=== PATIENT | female | born 1945 | race Caucasian/White ===

== ENCOUNTER 2019-05-30 12:37 | Emergency (ER) | payer MEDICARE ==
[~2019-05-30] VITALS: Ht 160 cm; Wt 63.5 kg
--- OUTSIDE RECORDS SUMMARY | 2019-05-30 12:40 | XMS REPORT ---
[facility] Address Unknown Phone Unavailable Care Team Providers Care Bog Worker Name Role Phone Unavailable Unavailable Payers Payer Name Policy Type Policy Number Effective Date Expiration Date Problems This patient has no known problems. Allergies, Adverse Reactions, Alerts Allergy Name Allergy Type Status Severity Reaction(s) Onset Date Inactive Date Treating Clinician Comments No Known Allergies DA Active U 2011-07-29 00:00:00 Medications This patient has no known medications.
[2019-05-30] MEDS: TETANUS/DIPHTHERIA TOX ADULT 0.5 ML SYR IM STA (14:19)
[2019-05-30] MEDS ORDERED: TETANUS/DIPHTHERIA TOX ADULT 0.5 ML SYR ONE (14:19)
[2019-05-30 14:22] VITALS: BP 167/88
== END 2019-05-30 14:27 | disposition home or self-care (01) ==
LOC: FSED 12:37
DX: S61.012A Laceration without foreign body of left thumb without damage to nail, initial encounter (principal); W26.0XXA Contact with knife, initial encounter; Y93.G3 Activity, cooking and baking; Y92.000 Kitchen of unspecified non-institutional (private) residence as the place of occurrence of the external cause; I10 Essential (primary) hypertension; E03.9 Hypothyroidism, unspecified; K21.9 Gastro-esophageal reflux disease without esophagitis
CPT/HCPCS: 90471; 90714; 99283

== ENCOUNTER 2019-05-31 18:06 | Emergency (ER) | payer MEDICARE ==
[~2019-05-31] VITALS: Ht 160 cm; Wt 63.5 kg
[2019-05-31] MEDS ORDERED: SILVER NITRATE SWABS ONE (18:16)
[2019-05-31] MEDS ORDERED: SILVER NITRATE SWABS TOP ONE (18:30)
== END 2019-05-31 18:46 | disposition home or self-care (01) ==
LOC: FSED 18:06
DX: S61.011A Laceration without foreign body of right thumb without damage to nail, initial encounter (principal); W45.8XXA Other foreign body or object entering through skin, initial encounter; Y92.008 Other place in unspecified non-institutional (private) residence as the place of occurrence of the external cause; I10 Essential (primary) hypertension; I51.9 Heart disease, unspecified; N28.9 Disorder of kidney and ureter, unspecified; E03.9 Hypothyroidism, unspecified
CPT/HCPCS: 99282

== ENCOUNTER 2019-09-13 18:04 | Emergency (ER) | payer MEDICARE, OTHER ==
[~2019-09-13] VITALS: Ht 160 cm; Wt 63.5 kg
--- NOTE | 2019-09-13 18:26 | Emergency Department Note ---
History of Present Illnes History of Present Illness Chief Complaint: General Medicine Complaints History of Present Illness This is a 74 year old female . Historian: Patient Arrival Mode: Car Onset (how long ago): day(s) (3) Severity: mild Onset quality: gradual Progression: worsening Context: Reports recent illness (PALMERMARTIN DO) Past Medical/Family History Physician Review I have reviewed the patient's past medical and family history. Any updates have been documented here. (SPENCERMARTIN ) Past Medical History Recent Fever: No Clinical Suspicion of Infectio: No New/Unexplained Change in Ment: No Past Medical History: Hypertension, Hypothyroidism, GERD, Hyperlipedemia Past Surgical History: Hysterectomy, Knee Replacement Other Surgery: THYROIDECTOMY BLADDER SUSPENSION (MARTIN PALMER DO) Past Medical History: Hypertension (ELISSA REGALADO DO) Social History Smoking Cessation: Never Smoker Alcohol Use: None Any Illegal Drug Use: No (SPENCERMARTIN ) Other Last Tetanus: UNKNOWN (MARTIN PALMER DO) Review of Systems Review of Systems Constitutional: Reports no symptoms; Denies fever EENTM: Reports no symptoms Cardiovascular: Reports no symptoms Respiratory: Reports cough Gastrointestinal: Reports no symptoms Genitourinary: Reports no symptoms Musculoskeletal: Reports no symptoms Integumentary: Reports no symptoms Neurological: Reports no symptoms Psychological: Reports no symptoms Endocrine: Reports no symptoms Hematological/Lymphatic: Reports no symptoms (SPENCERMARTIN ) Physical Exam Related Data Allergies: Coded Allergies: ciprofloxacin (Verified Allergy, Intermediate, 05/30/19) Triage Vital Signs Vital Signs Date Time Temp Pulse Resp B/P (MAP) Pulse Ox O2 Delivery O2 Flow Rate FiO2 09/13/19 18:14 100.2 76 18 139/91 98 (PALMERMARTIN ) Vital signs reviewed: Yes (ELISSA REGALADO DO) Physical Exam CONSTITUTIONAL Constitutional: Present well-developed, Present well-nourished HENT HENT: Present normocephalic, Present atraumatic, Present oropharynx clear/moist, Present nose normal HENT L/R: Present left ext ear normal, Present right ext ear normal EYES Eyes: Reports PERRL, Reports conjunctivae normal NECK Neck: Present ROM normal PULMONARY Pulmonary: Present effort normal, Present breath sounds normal CARDIOVASCULAR Cardiovascular: Present regular rhythm, Present heart sounds normal, Present capillary refill normal, Present normal rate GASTROINTESTINAL Abdominal: Present soft, Present nontender, Present bowel sounds normal GENITOURINARY Genitourinary: Present exam deferred SKIN Skin: Present warm, Present dry MUSCULOSKELETAL Musculoskeletal: Present ROM normal NEUROLOGICAL Neurological: Present alert, Present oriented x 3, Present no gross motor or sensory deficits PSYCHOLOGICAL Psychological: Present mood/affect normal, Present judgement normal (MARTIN PALMER DO) Results Laboratory Lab results reviewed: Yes Laboratory comments Laboratory Tests Test 09/13/19 20:40 09/13/19 18:23 Lactic Acid Level 1.2 mmol/L (0.5-2.0) 1.1 mmol/L (0.5-2.0) White Blood Count 2.71 x10e3/uL (4.8-10.8) Red Blood Count 4.65 x10e6/uL (3.6-5.1) Hemoglobin 12.8 g/dL (12.0-16.0) Hematocrit 39.1 % (34.2-44.1) Mean Corpuscular Volume 84.1 fL (81-99) Mean Corpuscular Hemoglobin 27.5 pg (28-32) Mean Corpuscular Hemoglobin Concent 32.7 g/dL (31-35) Red Cell Distribution Width 14.6 % (11.7-14.4) Platelet Count 135 x10e3/uL (140-360) Neutrophils (%) (Auto) 61.9 % (38.7-80.0) Lymphocytes (%) (Auto) 25.1 % (18.0-39.1) Monocytes (%) (Auto) 11.8 % (4.4-11.3) Eosinophils (%) (Auto) 0.4 % (0.0-6.0) Basophils (%) (Auto) 0.4 % (0.0-1.0) Neutrophils # (Auto) 1.7 (2.1-6.9) Lymphocytes # (Auto) 0.7 (1.0-3.2) Monocytes # (Auto) 0.3 (0.2-0.8) Eosinophils # (Auto) 0.0 (0.0-0.4) Basophils # (Auto) 0.0 (0.0-0.1) Absolute Immature Granulocyte (auto 0.01 x10e3/uL (0-0.1) Sodium Level 134 mmol/L (136-145) Potassium Level 3.3 mmol/L (3.5-5.1) Chloride Level 94 mmol/L (98-107) Carbon Dioxide Level 30 mmol/L (22-29) Anion Gap 13.3 mmol/L (8-16) Blood Urea Nitrogen 18 mg/dL (7-26) Creatinine 1.55 mg/dL (0.57-1.11) Estimat Glomerular Filtration Rate 33 ML/MIN (60-) BUN/Creatinine Ratio 12 (6-25) Glucose Level 109 mg/dL (74-118) Calcium Level 9.1 mg/dL (8.4-10.2) Total Bilirubin 0.9 mg/dL (0.2-1.2) Aspartate Amino Transf (AST/SGOT) 26 IU/L (5-34) Alanine Aminotransferase (ALT/SGPT) 15 IU/L (0-55) Alkaline Phosphatase 62 IU/L (40-150) Creatine Kinase 31 IU/L (29-168) Creatine Kinase MB 0.50 ng/mL (0-5.0) Troponin I 0.022 ng/mL (0-0.300) B-Type Natriuretic Peptide 24.2 pg/mL (0-100) Total Protein 6.6 g/dL (6.5-8.1) Albumin 3.7 g/dL (3.5-5.0) Globulin 2.9 g/dL (2.3-3.5) Albumin/Globulin Ratio 1.3 (0.8-2.0) (ELISSA REGALADO, DO) Imaging Imaging results reviewed: Yes Impressions IMPRESSION: 1. Lines and Tubes: None 2. Lungs are well-inflated. 5 mm nodular density projecting over the posterior aspect of the right fifth rib, which may represent a pulmonary nodule or calcified granuloma. No prior films are available for comparison. Recommend follow-up chest PA and lateral in 2-3 months to document stability. Minimal patchy opacity projecting in the region of the left costophrenic sulcus, likely representing atelectasis. No consolidation or effusion. 3. Cardiomediastinal silhouette is normal. Pulmonary vasculature is normal. 4. No acute bony abnormalities. Signed by: Dr. Mega Amin M.D. on 09/13/2019 9:18 PM (ELISSA REGALADO, DO) Procedures 12 Lead ECG Interpretation ECG Interpretation : ECG: ECG 1 Hospice Liaison: Interpreted by ED physician Prior ECG tracings: reviewed Rhythm: sinus rhythm QRS axis: left ST segments normal: Yes T waves normal: Yes Clinical Impression: normal ECG (ELISSA REGALADO DO) Assessment & Plan Medical Decision Making MDM 73-year-old female brought to the ED with complaints of cough and fever. Patient is clinically presenting with signs and symptoms consistent with Covid 19. Patient informed she is positive until proven otherwise. Patient's oxygen saturation remained 99% even on exertion, no evidence of tachypnea or dyspnea noted in the ED. Spoke present length about the importance of sleeping on her stomach and rotating from side to side. Z-Walt given, signs and symptoms for return discussed. Patient's lab work reviewed, mild leukocytosis noted- chest x-ray shows questionable opacities. Patient clinically appears well, outpatient pulmonary follow-up given. The flexor return to emergency department given. Patient understands the emergency department is open at all times to certain her needs as well as a need to the community. In the light of the Covid pandemic, disaster medicine care was given- patient understands why he was not object for Covid, no indications for a chest x-ray at this time given normal oxygen saturation and respiratory status. (ELISSA REGALADO DO) Assessment & Plan Final Impression: (1) COVID-19 (ELISSA REGALADO DO) Depart Disposition: HOME, SELF-CARE Last Vital Signs Date Time Temp Pulse Resp B/P (MAP) Pulse Ox O2 Delivery O2 Flow Rate FiO2 09/13/19 18:14 100.2 76 18 139/91 98 (MARTIN PALMER DO) Home Meds Active Scripts Azithromycin (Z-WALT) 250 Mg Tablet, 1 PKG PO DIRECTED, #1 PKG 0 Refills Prov:ELISSA REGALADO DO 09/13/19 MARTIN PALMER DO Sep 13, 2019 18:26 ELISSA REGALADO DO Sep 13, 2019 21:50
[2019-09-13] MEDS ORDERED: ACETAMINOPHEN 325 MG TAB PO NR (18:30)
[2019-09-13 18:45] LABS: BASOPHILS % 0.4 % (0.0-1.0); EOSINOPHILS % 0.4 % (0.0-6.0); HEMATOCRIT 39.1 % (34.2-44.1); HEMOGLOBIN 12.8 g/dL (12.0-16.0); LYMPHOCYTES # (AUTO) 0.7 (1.0-3.2); LYMPHOCYTES % 25.1 % (18.0-39.1); MEAN CORPUSCULAR HEMOGLOBIN 27.5 pg (28-32); MEAN CORPUSCULAR HGB CONC 32.7 g/dL (31-35); MEAN CORPUSCULAR VOLUME 84.1 fL (81-99); MONOCYTES # (AUTO) 0.3 (0.2-0.8); MONOCYTES % 11.8 % (4.4-11.3); NEUTROPHILS # (AUTO) 1.7 (2.1-6.9); NEUTROPHILS % 61.9 % (38.7-80.0); RED BLOOD COUNT 4.65 x10e6/uL (3.6-5.1); RED CELL DISTRIBUTION WIDTH 14.6 % (11.7-14.4)
[2019-09-13] MEDS ORDERED: ASPIRIN 81 MG CHEW TAB PO ONE (18:45)
[2019-09-13 18:47] LABS: PLATELET COUNT 135 x10e3/uL (140-360)
[2019-09-13 19:07] LABS: ALBUMIN 3.7 g/dL (3.5-5.0); ALBUMIN/GLOBULIN RATIO 1.3 (0.8-2.0); ANION GAP 13.3 mmol/L (8-16); CALCIUM 9.1 mg/dL (8.4-10.2); CREATININE, SERUM 1.55 mg/dL (0.57-1.11); POTASSIUM 3.3 mmol/L (3.5-5.1)
[2019-09-13 19:15] LABS: CREATINE KINASE MB 0.5 ng/mL (0-5.0)
[2019-09-13 19:22] LABS: B-TYPE NATRIURETIC PEPTIDE2 24.2 pg/mL (0-100)
--- NOTE | 2019-09-13 21:21 | Diagnostic Imaging Report ---
Examination: Single AP view of the chest. COMPARISON: None. INDICATION: Cough IMPRESSION: 1. Lines and Tubes: None 2. Lungs are well-inflated. 5 mm nodular density projecting over the posterior aspect of the right fifth rib, which may represent a pulmonary nodule or calcified granuloma. No prior films are available for comparison. Recommend follow-up chest PA and lateral in 2-3 months to document stability. Minimal patchy opacity projecting in the region of the left costophrenic sulcus, likely representing atelectasis. No consolidation or effusion. 3. Cardiomediastinal silhouette is normal. Pulmonary vasculature is normal. 4. No acute bony abnormalities. Signed by: Dr. Mega Amin M.D. on 09/13/2019 9:18 PM
[2019-09-13] MEDS ORDERED: AZITHROMYCIN250 MG PO (21:43)
[2019-09-13 21:57] LABS: CLARITY,URINE SL CLOUDY (CLEAR); COLOR,URINE YELLOW (YELLOW); KETONES,URINE NEGATIVE (NEGATIVE); LEUKOCYTE ESTERASE ,URINE TRACE (NEGATIVE); NITRITE,URINE NEGATIVE (NEGATIVE); PROTEIN,URINE DIPSTICK NEGATIVE (NEGATIVE)
[2019-09-13 21:58] LABS: BACTERIA,URINE RARE /HPF; BILIRUBIN,URINE NEGATIVE (NEGATIVE); EPITHELIAL CELLS,URINE FEW /LPF; URINE UROBILINOGEN 0.2 mg/dL (0.2 - 1)
[2019-09-13 22:36] VITALS: BP 136/70
--- NOTE | 2019-09-14 13:49 | NUR ---
Patient presented to ER due to wanting to know her covid results, was given verbal order by Dr. More to inform patient on positive results, informed patient to quarantine for 14 days, avoid large crowds, wear her mask and wash and sanitize.
== END 2019-09-13 22:50 | disposition home or self-care (01) ==
LOC: ER 18:04
DX: U07.1 COVID-19 (principal); R50.9 Fever, unspecified; R05 Cough; I10 Essential (primary) hypertension; E78.5 Hyperlipidemia, unspecified; K21.9 Gastro-esophageal reflux disease without esophagitis
CPT/HCPCS: 36415; 71045; 80053; 81001; 82550; 82553; 83605; 83880; 84484; 85025; 87040; 87635; 93005; 99284

== ENCOUNTER 2020-11-08 10:45 | Emergency (ER) | payer MEDICARE ==
[~2020-11-08] VITALS: Ht 160 cm; Wt 63.5 kg
[~2020-11-08 10:45] MED LIST: AZITHROMYCIN250 MG PO
[2020-11-08 11:07] LABS: BASOPHILS % 0.5 % (0.0-1.0); EOSINOPHILS # (AUTO) 0.1 (0.0-0.4); EOSINOPHILS % 1.1 % (0.0-6.0); HEMATOCRIT 36.7 % (34.2-44.1); LYMPHOCYTES % 18.2 % (18.0-39.1); MEAN CORPUSCULAR HEMOGLOBIN 27.3 pg (28-32); MEAN CORPUSCULAR HGB CONC 32.7 g/dL (31-35); MEAN CORPUSCULAR VOLUME 83.6 fL (81-99); MONOCYTES # (AUTO) 0.4 (0.2-0.8); MONOCYTES % 6.2 % (4.4-11.3); NEUTROPHILS # (AUTO) 4.2 (2.1-6.9); NEUTROPHILS % 73.6 % (38.7-80.0); PLATELET COUNT 211 x10e3/uL (140-360); RED BLOOD COUNT 4.39 x10e6/uL (3.6-5.1); RED CELL DISTRIBUTION WIDTH 14.7 % (11.7-14.4)
[2020-11-08 11:27] LABS: CLARITY,URINE CLEAR (CLEAR); COLOR,URINE YELLOW (YELLOW); KETONES,URINE NEGATIVE (NEGATIVE); LEUKOCYTE ESTERASE ,URINE TRACE (NEGATIVE); NITRITE,URINE NEGATIVE (NEGATIVE); PROTEIN,URINE DIPSTICK NEGATIVE (NEGATIVE); URINE UROBILINOGEN 0.2 mg/dL (0.2 - 1)
[2020-11-08 11:46] LABS: ALBUMIN 3.6 g/dL (3.5-5.0); ALBUMIN/GLOBULIN RATIO 1.3 (0.8-2.0); ANION GAP 15.3 mmol/L (8-16); CALCIUM 9.2 mg/dL (8.4-10.2); CREATININE, SERUM 1.6 mg/dL (0.57-1.11)
[2020-11-08 11:48] LABS: POTASSIUM 2.3 mmol/L (3.5-5.1)
[2020-11-08] MEDS ORDERED: POTASSIUM CHLORIDE 20 MEQ TAB CR PO STA (11:52)
[2020-11-08 11:53] LABS: RBC,URINE 0-5 /HPF (0-5)
[2020-11-08 11:54] LABS: BACTERIA,URINE RARE /HPF; EPITHELIAL CELLS,URINE RARE /LPF
[2020-11-08] MEDS ORDERED: POTASSIUM CHLORIDE 20 MEQ TAB CR PO ONE (12:00)
[2020-11-08] MEDS ORDERED: POTASSIUM CHLORIDE 20MEQ/100ML 200 ML IV ONE (12:30)
[2020-11-08] MEDS ORDERED: SODIUM CHLORIDE 0.9% 250ML 250 ML ONE (12:40)
[2020-11-08 16:37] VITALS: BP 127/61
== END 2020-11-08 16:50 | disposition home or self-care (01) ==
LOC: ER 10:53
DX: E87.6 Hypokalemia (principal); R20.2 Paresthesia of skin; N39.0 Urinary tract infection, site not specified; I10 Essential (primary) hypertension
CPT/HCPCS: 36415; 80053; 81001; 85025; 99283; J3480; J7050